=== PATIENT | male | born 1985 | race Two or more races ===

== ENCOUNTER 2024-10-15 19:14 | Emergency (ER) | payer MEDICAID, SELFPAY ==
[2024-10-15 19:15] VITALS: BMI 28.1
[2024-10-15 19:46] VITALS: BP 135/94; PULSE 85; RESP 17; TEMP 36.8; O2SAT 100
--- NOTE | 2024-10-15 19:48 | PD.EDRME ---
Rapid Medical Screening Exam RME Arrival date/time: 10/15/24 19:14 39 yo m present to ED for c/back/abd pain for 1 week I have greeted and performed a focused initial assessment of this patient. A comprehensive ED assessment and evaluation of the patient, analysis of all test results, and completion of the medical decision making process will be conducted by additional ED providers. Chief Complaint: Back Pain/Injury Time Seen by Provider: 10/15/24 19:32 Vital signs: Vital Signs Temperature 98.3 F 10/15/24 19:46 Pulse Rate 85 10/15/24 19:46 Respiratory Rate 17 10/15/24 19:46 Blood Pressure 135/94 H 10/15/24 19:46 Pulse Oximetry (%) 100 10/15/24 19:46 Oxygen Delivery Method Room Air 10/15/24 19:46
[2024-10-15 20:19] LABS: Collection Type, Urine Voided; WBC,Urine 0 /hpf (0-5)
[2024-10-15 20:20] LABS: Basophils % (Auto) 1 % (0-2.5); Eosinophils # (Auto) 0.1 Thou/mm3 (0.0-0.5); Eosinophils % (Auto) 1 % (0-10); Hematocrit 38.9 % (41.0-53.0); Hemoglobin 13.2 g/dL (13.5-16.0); Immature Granulocytes % (Auto) 0 % (0-0); Immature Granulocytes Auto 0.02 Thou/mm3 (0.00-0.00); Lymphocytes # (Auto) 2.2 Thou/mm3 (1.0-4.8); Lymphocytes % (Auto) 37 % (10-50); Mean Corpuscular HGB Conc 33.9 g/dl (31.0-37.0); Mean Corpuscular Hemoglobin 29.4 pg (25.0-35.0); Mean Corpuscular Volume 87 fL (80-100); Monocytes # (Auto) 0.5 Thou/mm3 (0.0-0.8); Monocytes % (Auto) 8 % (0-12); Neutrophils # (Auto) 3.2 Thou/mm3 (1.8-7.7); Neutrophils % (Auto) 54 % (37-80); Nucleated Red Blood Cell % 0 /100 WBC (0); Platelet Count 382 Thou/mm3 (140-440); RDW Standard Deviation 41.7 fL (35.1-43.9); Red Blood Count 4.49 Miln/mm3 (4.50-5.90); White Blood Count 6.1 Thou/mm3 (3.8-10.6)
[2024-10-15 20:39] LABS: Bilirubin,Urine Negative (Negative); Blood,Urine Negative (Negative); Clarity,Urine Clear (Clear/Hazy); Color,Urine Colorless (Lt Yel-Yel); Glucose, Urine Negative (Negative); Ketones,Urine Negative (Negative); Leukocyte Esterase,Urine Negative (Negative); Nitrite,Urine Negative (Negative); Protein,Urine Negative (Neg - Trace); RBC,Urine < 1 /hpf (0-3); Specific Gravity,Urine 1.004 (1.001-1.035); Squamous Epithelial Cell,Urine < 1 /hpf (0-5); Urobilinogen,Urine Negative mg/dL (0.0-1.0)
[2024-10-15 20:40] LABS: Alanine Aminotransferase 28 U/L (10-49); Albumin, Serum 4.1 gm/dL (3.5-5.0); Albumin/Globulin Ratio 1.2 (1.2-2.2); Alkaline Phosphatase 118 U/L (46-116); Anion Gap 7 (7-16); Aspartate Amino Transferase 22 U/L (0-34); BUN/Creatinine Ratio 8 Ratio (12-20); Bilirubin,Total 0.4 mg/dL (0.3-1.2); Blood Urea Nitrogen 7 mg/dL (9-23); Calcium 8.8 mg/dL (8.3-10.6); Calcium (Corrected) 8.8 mg/dL (8.5-10.1); Carbon Dioxide 29.2 mMol/L (20.0-31.0); Chloride 101 mMol/L (98-107); Creatinine (Component) 0.9 mg/dL (0.6-1.3); Estimated Creatinine Clearance 110.5 mL/min (>60); Globulin 3.5 gm/dL (2.3-3.5); Glucose 90 mg/dL (74-106); Lipase 44 U/L (12-53); Osmolality,Calculated 271 (275-295); Potassium 3.6 mMol/L (3.4-5.1); Sodium 137 mMol/L (136-145); Total Protein 7.6 gm/dL (5.7-8.2); eGFR > 60 See Note
[2024-10-15] MEDS: MG HYD/AL HYD/SIME (Maalox Reg) SUSP 30 ML UDC PO (20:40)
--- NOTE | 2024-10-15 21:15 | EDNOTE_ITS ---
ED Back Injury Pain RME/HPI General Chief Complaint: Back Pain/Injury Stated Complaint: LOWER BACK/ABD Time Seen by Provider: 10/15/24 19:32 Arrival date/time: 10/15/24 19:14 39 year old male present emergency room with c/o of back/abd pain for 1week. pt is homeless and report. REVIEW OF SYSTEMS: See History of Present Illness - with the exception of those mentioned in the history of present illness, all other systems reviewed and reported as negative GENERAL: In general the patient is awake, interactive, in an emergency department gurney. HEAD/EYES/EARS/NOSE/THROAT: normo-cephalic, atraumatic, mucus membranes are moist, anicteric, palpebral conjunctiva is pink, trachea is midline. CARDIOVASCULAR: regular rate and regular rhythm, no murmurs, heart sounds are not distant, strong pulses in all four extremities that are equal and symmetric bilateral upper and lower extremities, normal capillary refill. CHEST/PULMONARY: normal chest rise and fall, good air movement, clear to auscultation bilaterally, normal inspiratory to expiratory ratios without evidence of respiratory distress. NECK: No midline/Paraspinal tenderness, no step off ROM/Strenght intact No Kernig and bruzinski sign. No trauma ABDOMEN: soft, not tender, no masses appreciated BACK: low back parapsinal tenderness, no rash normal range of motion without pain. NEUROLOGICAL: cranio-facial features are symmetric, moves all four extremities equally without obvious limitations or weakness. EXTREMITY: no tenderness to palpation over the long bones or large joints of the bilateral upper and lower extremities, no joint swelling, no joint erythema, no signs of trauma, no unilateral leg swelling and no peripheral edema. SKIN: warm, dry, well-perfused, no jaundice, no rash, no telangiectasias or petechia. PSYCH: calm, cooperative, no evidence of psychosis or agitation RME / HPI RME / HPI Narrative: 10/15/24 19:14 39 yo m present to ED for c/back/abd pain for 1 week I have greeted and performed a focused initial assessment of this patient. A comprehensive ED assessment and evaluation of the patient, analysis of all test results, and completion of the medical decision making process will be conducted by additional ED providers. Related Data Previous Rx's ?Medication ?Instructions ?Recorded acetaminophen 325 mg tablet 325 mg PO QID PRN fever or pain 04/19/22 (Tylenol) #30 tabs clindamycin HCl 300 mg capsule 300 mg PO Q6H #40 tabs 04/19/22 ibuprofen 200 mg tablet (Ibuprofen 600 mg (3 x 200 mg) PO Q6H PRN 04/19/22 IB) pain #30 tabs Allergies Allergy/AdvReac Type Severity Reaction Status Date / Time No Known Allergies Allergy Verified 12/21/23 02:04 Course Quality Measures none Orders Category Date Time Status CBC Stat Lab 10/15/24 20:05 Completed CMP [Comprehensive Metabolic Panel] Stat Lab 10/15/24 20:05 Completed Lipase Stat Lab 10/15/24 20:05 Completed UA [Urinalysis] Stat Lab 10/15/24 20:10 Completed mg Hyd/Al Hyd/Mag Susp [Maalox Susp] Med 10/15/24 19:48 Discontinued 30 ml PO X1 ONE Vital Signs Vital signs: Vital Signs Temperature 98.3 F 10/15/24 19:46 Pulse Rate 85 10/15/24 19:46 Respiratory Rate 17 10/15/24 19:46 Blood Pressure 135/94 H 10/15/24 19:46 Pulse Oximetry (%) 100 10/15/24 19:46 Oxygen Delivery Method Room Air 10/15/24 19:46 Back Pain / Injury Patient data External records reviewed:: [facility] previous records Clinical information provided by:: patient Social determinants that could affect healthcare access:: none Patient has the following chronic illnesses:: n/a How is presenting disease/condition affected by chronic disease/condition?: uneffected by Evaluation data The following diagnostics were reviewed and interpreted by me:: lab results Lab and/or radiology exams considered but not ordered:: n/a Interpretation Summary: cbc/cmp wnl Medications / Prescriptions Medications or Prescriptions considered but not ordered:: n/a Medication administrations:: Medication Administration History Discontinued Medications Al Hydrox/Mg Hydrox/Simethicone (Mg Hyd/Al Hyd/Mag (Maalox Reg) Susp 30 Ml Udc) 30 ml PO X1 ONE Stop: 10/15/24 19:49 Last Admin: 10/15/24 20:40 Dose: 30 ml Documented By: ALISHA as stated Consultations Consultation(s) initiated? (list below): No Diagnosis Most likely diagnosis given after review of the tests above:: back pain Admission Indicated Admission indicated?: not indicated Admission Request Was there a request for admission?: No Disposition Plan Disposition Plan: Discharge Discharge Attestation Discharge Attestation: The patient and all family members were given an opportunity to ask questions and understood the discharge instructions. Discharge instructions specifically effects, indications for sooner follow up or return to the emergency department, and the expected course of current diagnosis. Patient condition: Stable Discharge Plan Plan Patient Disposition: HOME (Self Care) Health Concerns: Follow with PMD as directed Take tylenol or motrin as need Return to ED if sx worsen Prescriptions/Referrals Prescriptions/Med Rec: No Action clindamycin HCl 300 mg capsule 300 mg PO Q6H Qty: 40 0RF ibuprofen [Ibuprofen IB] 200 mg tablet 600 mg PO Q6H PRN (Reason: pain) Qty: 30 0RF acetaminophen [Tylenol] 325 mg tablet 325 mg PO QID PRN (Reason: fever or pain) Qty: 30 0RF Referrals: No Primary/Family,Physician [Primary Care Provider] - In 1 week Problem List Clinical Impression: Back pain Patient/Caregiver Discharge Instructions Education Materials: ED Back Care Tips Print Language: Kinyarwanda Stand Alone Forms: Rema Award Info., Patient Portal Info Letter
== END 2024-10-15 21:37 | disposition home or self-care (01) ==
PROVIDERS: Physician Assistant; Emergency Provider Emergency Medicine
DX: M54.9 Dorsalgia, unspecified (principal); Z59.00 Homelessness unspecified
CPT/HCPCS: 36415; 80053; 81001; 83690; 85025; 99283; A9270

== ENCOUNTER 2025-02-24 05:05 | Emergency (ER) | payer MEDICAID, SELFPAY ==
[2025-02-24 05:07] VITALS: BMI 29.0
[2025-02-24 05:30] VITALS: BP 130/92; PULSE 81; RESP 18; TEMP 36.7; O2SAT 100
--- NOTE | 2025-02-24 06:23 | XR_ITS ---
Examination: Testicular sonography complete TECHNIQUE: Grayscale sonographic images testes, assessment arterial inflow venous outflow Doppler spectral analysis carful analysis Date and time: February 24, 2025 0737 hours INDICATIONS: Left testicular pain and swelling today FINDINGS: Right testis 5.2 cm epididymis 12 mm. Arterial flow testicle. No testicular mass Left testis 5.0 cm epididymis 15 mm No arterial flow, which may be technical given the swelling in the scrotum No testicular mass Scrotal wall is thickened IMPRESSION: No arterial flow recorded to the left testicle, repeat this study short-term
--- NOTE | 2025-02-24 06:23 | XR_ITS ---
Examination: CT abdomen and pelvis without contrast. Coronal 3-D reconstructions. Sagittal 2-D reconstructions. Date and time of exam:February 24, 2025, 0705 hours Comparison August 26, 2021 INDICATIONS: Left lower abdominal pain abdominal pain with clinical diagnosis urinary tract infection today CTDI: vol (mGy): 7.46. DLP: (mGycm): 394. Technique: Axial images of the abdomen have been obtained, 3 mm slice thickness Intravenous contrast material has not been administered. Low dose protocols were performed. One or more of the following dose reduction techniques were used; automated exposure control, adjustment of the mA and/or KV according to patient size, use of iterative reconstruction technique. Findings: No focal liver or splenic lesions. No gallstones No pancreatic or adrenal mass No renal or ureteral calculi, no hydronephrosis 12 mm fat-containing umbilical hernia Normal appendix No bowel obstruction Marked urinary bladder wall thickening up to 15 mm No bladder calculi No prostatomegaly Fluid-containing left inguinal hernia There is edema in the lower abdominal and pelvic mesentery, for instance axial image 136, clinical correlation advised No bowel obstruction Impression : Severe cystitis pattern. There is edema in the lower abdominal and pelvic mesentery, differential would include mesenteric panniculitis, clinical correlation advised
--- NOTE | 2025-02-24 06:24 | PD.EDRME ---
Rapid Medical Screening Exam E Arrival date/time: 02/24/25 05:05 39-year-old male with a history of an inguinal hernia presents to the emergency room with a chief complaint of lower abdominal pain, dysuria, left-sided testicular swelling x 1 week I have greeted and performed a focused initial assessment of this patient. A comprehensive ED assessment and evaluation of the patient, analysis of all test results, and completion of the medical decision making process will be conducted by additional ED providers. Chief Complaint: Abdominal Pain Time Seen by Provider: 02/24/25 06:13 Vital signs: Vital Signs Temperature 98.1 F 02/24/25 05:30 Pulse Rate 81 02/24/25 05:30 Respiratory Rate 18 02/24/25 05:30 Blood Pressure 130/92 H 02/24/25 05:30 Pulse Oximetry (%) 100 02/24/25 05:30 Vital signs reviewed by provider: Yes
[2025-02-24 06:45] LABS: Basophils # (Auto) 0.1 Thou/mm3 (0.0-0.2); Basophils % (Auto) 1 % (0-2.5); Eosinophils # (Auto) 0.1 Thou/mm3 (0.0-0.5); Eosinophils % (Auto) 1 % (0-10); Hematocrit 42.5 % (41.0-53.0); Hemoglobin 14.5 g/dL (13.5-16.0); Immature Granulocytes Auto 0.01 Thou/mm3 (0.00-0.00); Lymphocytes # (Auto) 2.1 Thou/mm3 (1.0-4.8); Lymphocytes % (Auto) 34 % (10-50); Mean Corpuscular HGB Conc 34.1 g/dl (31.0-37.0); Mean Corpuscular Hemoglobin 30.8 pg (25.0-35.0); Mean Corpuscular Volume 90 fL (80-100); Monocytes # (Auto) 0.5 Thou/mm3 (0.0-0.8); Monocytes % (Auto) 7 % (0-12); Neutrophils # (Auto) 3.5 Thou/mm3 (1.8-7.7); Neutrophils % (Auto) 56 % (37-80); Nucleated Red Blood Cell # 0.00 Thou/mm3 (0.00-0.00); Nucleated Red Blood Cell % 0 /100 WBC (0); Platelet Count 290 Thou/mm3 (140-440); RDW Standard Deviation 46.4 fL (35.1-43.9); Red Blood Count 4.71 Miln/mm3 (4.50-5.90); White Blood Count 6.3 Thou/mm3 (3.8-10.6)
[2025-02-24 07:03] LABS: Alanine Aminotransferase 10 U/L (10-49); Albumin, Serum 4.5 gm/dL (3.5-5.0); Albumin/Globulin Ratio 1.6 (1.2-2.2); Alkaline Phosphatase 118 U/L (46-116); Anion Gap 7 (7-16); Aspartate Amino Transferase 17 U/L (0-34); BUN/Creatinine Ratio 7 Ratio (12-20); Bilirubin,Total 0.6 mg/dL (0.3-1.2); Blood Urea Nitrogen 6 mg/dL (9-23); Calcium 9.2 mg/dL (8.3-10.6); Calcium (Corrected) 9.2 mg/dL (8.5-10.1); Carbon Dioxide 29.7 mMol/L (20.0-31.0); Chloride 101 mMol/L (98-107); Creatinine (Component) 0.9 mg/dL (0.6-1.3); Estimated Creatinine Clearance 108.4 mL/min (>60); Globulin 2.8 gm/dL (2.3-3.5); Glucose 95 mg/dL (74-106); Lipase 40 U/L (12-53); Osmolality,Calculated 273 (275-295); Potassium 3.8 mMol/L (3.4-5.1); Sodium 138 mMol/L (136-145); Total Protein 7.3 gm/dL (5.7-8.2); eGFR > 60 See Note
[2025-02-24 07:26] VITALS: BP 145/91; PULSE 92; RESP 19; TEMP 36.6; O2SAT 100
[2025-02-24 08:50] LABS: Collection Type, Urine Clean Catch; RBC,Urine 0 /hpf (0-3); Squamous Epithelial Cell,Urine 0 /hpf (0-5)
[2025-02-24 09:03] VITALS: BP 132/88; PULSE 80; RESP 15; O2SAT 100
[2025-02-24 09:09] LABS: Bilirubin,Urine Negative (Negative); Blood,Urine Negative (Negative); Clarity,Urine Clear (Clear/Hazy); Color,Urine Colorless (Lt Yel-Yel); Culture Indicated,Urine Not Indicated; Glucose, Urine Negative (Negative); Ketones,Urine Negative (Negative); Leukocyte Esterase,Urine Negative (Negative); Nitrite,Urine Negative (Negative); PH,Urine 6.5 (5.0-7.0); Protein,Urine Negative (Neg - Trace); Specific Gravity,Urine 1.003 (1.001-1.035); Urobilinogen,Urine Negative mg/dL (0.0-1.0); WBC,Urine < 1 /hpf (0-5)
--- NOTE | 2025-02-24 09:43 | PD.EDMALE ---
ED Male Genitalurinary RME/HPI General Chief complaint: Abdominal Pain Stated complaint: ABD PAIN Time Seen by Provider: 02/24/25 06:13 Arrival date/time: 02/24/25 05:05 RME / HPI RME / HPI Narrative: 02/24/25 05:05 39-year-old male with a history of an inguinal hernia presents to the emergency room with a chief complaint of lower abdominal pain, dysuria, left-sided testicular swelling x 1 week I have greeted and performed a focused initial assessment of this patient. A comprehensive ED assessment and evaluation of the patient, analysis of all test results, and completion of the medical decision making process will be conducted by additional ED providers. DR. LOBATO MAIN ED EVALUATION: 39-year-old male with a history of polysubstance abuse (fentanyl, methamphetamie, THC) presents to the Emergency Department with complaint of bilateral testicular swelling, worse on the left, associated with moderate pain and trouble urinating. Symptoms started yesterday. Patient denies discharge or other symptoms at this time. Related Data Previous Rx's ?Medication ?Instructions ?Recorded acetaminophen 325 mg tablet 325 mg PO QID PRN fever or pain 04/19/22 (Tylenol) #30 tabs clindamycin HCl 300 mg capsule 300 mg PO Q6H #40 tabs 04/19/22 ibuprofen 200 mg tablet (Ibuprofen 600 mg (3 x 200 mg) PO Q6H PRN 04/19/22 IB) pain #30 tabs Allergies Allergy/AdvReac Type Severity Reaction Status Date / Time No Known Allergies Allergy Verified 12/21/23 02:04 Review of Systems Review of Systems Systems Reviewed: All systems reviewed, normal except as documented Past Medical History Past Medical History NEUROLOGIC: Positive Head Trauma ENT: Positive Head Trauma PSYCHO/SOCIAL: Positive Recreational Drug Use Social History SMOKING STATUS: Never smoker SUBSTANCE USE: methamphetamine ED Exam Narrative Physical exam: GENERAL APPEARANCE: alert and oriented x 4, well-developed, well-nourished, no acute distress VITALS: All vitals were reviewed and the pulse ox is 100% on room air, which is normal according to my interpretation. HEENT: Normocephalic, atraumatic; pupils equal, round, reactive to light; EOMI; mucous membranes pink, moist; oropharynx clear NECK: Supple LUNGS: CTABL; no wheezes, no rales, no rhonchi HEART: Regular rate, regular rhythm; normal S1, S2; no murmurs ABDOMEN: non distended; normal BS; soft, no tenderness, no guarding, no rebound; no masses, no organomegaly, no hernia : Bilateral testicles' swelling but moreso on the left testicle. BACK: no CVA tenderness EXTREMITIES: atraumatic; no edema NEUROLOGIC: awake; alert and oriented x4; cranial nerves II-XII grossly intact; no focal sensory or motor deficits PSYCHIATRIC: appropriate mood and affect SKIN: warm, dry, normal color; no rashes Course Quality Measures none Orders Category Date Time Status CT abdomen pelvis wo con Stat Exams 02/24/25 06:23 Completed US scrotum Stat Exams 02/24/25 11:35 Completed US testicular Stat Exams 02/24/25 06:23 Completed CBC Stat Lab 02/24/25 06:31 Completed CMP [Comprehensive Metabolic Panel] Stat Lab 02/24/25 06:31 Completed Lipase Stat Lab 02/24/25 06:31 Completed UA, C/S IF [Urinalysis, C/S if Indicated] Stat Lab 02/24/25 07:37 Completed Vital Signs Vital signs: Vital Signs Temperature 98.1 F 02/24/25 05:30 Pulse Rate 81 02/24/25 05:30 Respiratory Rate 18 02/24/25 05:30 Blood Pressure 130/92 H 02/24/25 05:30 Pulse Oximetry (%) 100 02/24/25 05:30 Urogenital - Male MDM Narrative MDM Narrative:: I, Katherine Bowles am scribing for and in the presence of Dr. Lobato. Patient data External records reviewed:: [facility] previous records Clinical information provided by:: patient Social determinants that could affect healthcare access:: substance use (polysubstance abuse (fentanyl, methamphetamie, THC)) Patient has the following chronic illnesses:: Denies any PMHx, surgeries, daily medications, or known allergies. How is presenting disease/condition affected by chronic disease/condition?: no chronic disease Evaluation data The following diagnostics were reviewed and interpreted by me:: lab results and radiology exam(s) Lab and/or radiology exams considered but not ordered:: none Interpretation Summary: Procedure(s): US testicular Accession Number(s): [id number] cc: Herman Morales; Jose Rodriguez MD; NO PRIMARY/FAMILY,PHYSICIAN~ Examination: Testicular sonography complete TECHNIQUE: Grayscale sonographic images testes, assessment arterial inflow venous outflow Doppler spectral analysis carful analysis Date and time: February 24, 2025 0737 hours INDICATIONS: Left testicular pain and swelling today FINDINGS: Right testis 5.2 cm epididymis 12 mm. Arterial flow testicle. No testicular mass Left testis 5.0 cm epididymis 15 mm No arterial flow, which may be technical given the swelling in the scrotum No testicular mass Scrotal wall is thickened IMPRESSION: No arterial flow recorded to the left testicle, repeat this study short-term Dictated By: Jose Rodriguez MD Procedure(s): CT abdomen pelvis wo [facility] Accession Number(s): [id number] cc: Herman Morales; Jose Rodriguez MD~ Examination: CT abdomen and pelvis without contrast. Coronal 3-D reconstructions. Sagittal 2-D reconstructions. Date and time of exam:February 24, 2025, 0705 hours Comparison August 26, 2021 INDICATIONS: Left lower abdominal pain abdominal pain with clinical diagnosis urinary tract infection today CTDI: vol (mGy): 7.46. DLP: (mGycm): 394. Technique: Axial images of the abdomen have been obtained, 3 mm slice thickness Intravenous contrast material has not been administered. Low dose protocols were performed. One or more of the following dose reduction techniques were used; automated exposure control, adjustment of the mA and/or KV according to patient size, use of iterative reconstruction technique. Findings: No focal liver or splenic lesions. No gallstones No pancreatic or adrenal mass No renal or ureteral calculi, no hydronephrosis 12 mm fat-containing umbilical hernia Normal appendix No bowel obstruction Marked urinary bladder wall thickening up to 15 mm No bladder calculi No prostatomegaly Fluid-containing left inguinal hernia There is edema in the lower abdominal and pelvic mesentery, for instance axial image 136, clinical correlation advised No bowel obstruction Impression : Severe cystitis pattern. There is edema in the lower abdominal and pelvic mesentery, differential would include mesenteric panniculitis, clinical correlation advised Dictated By: Jose Rodriguez MD Procedure(s): US scrotum Accession Number(s): [id number] cc: Jose Rodriguez MD; NO PRIMARY/FAMILY,PHYSICIAN; Ángela Lobato MD~ Examination: Testicular sonography complete TECHNIQUE: Grayscale sonographic images testes, assessment arterial inflow venous outflow Doppler spectral analysis carful analysis Date and time: February 24, 2025, 1157 hours INDICATIONS: No left testicular flow on ultrasound left testis 0737 hours this morning FINDINGS: Right testis 4.7 cm epididymis 9 mm Arterial flow testicle. No testicular mass Left testis 4.6 cm epididymis 11 mm Arterial flow testicle No testicular mass IMPRESSION: Negative for testicular torsion Dictated By: Jose Rodriguez MD Medications / Prescriptions Medications or Prescriptions considered but not ordered:: none Medication administrations:: see above if any Consultations Consultation(s) initiated? (list below): Yes Consultation #1 (Physician, Specialty, Details): Discussed testicular US with Dr. Sabillon. He sees good arterial flow on the right testicle, but no arterial flow recorded to the left testicle. There is concern for torsion. Dr. Sabillon report there is a lot of edema on the left testicle so recommended to repeat the US in an hour. Time: 09:29 Diagnosis Urogenital Male Differential Diagnosis: other (epididymitis, testicular torsion, and orchitis) Most likely diagnosis given after review of the tests above:: Scrotal edema Admission Indicated Admission indicated?: not indicated Admission Request Was there a request for admission?: No Disposition Plan Disposition Plan: Discharge Discharge Attestation Discharge Attestation: The patient and all family members were given an opportunity to ask questions and understood the discharge instructions. Discharge instructions specifically effects, indications for sooner follow up or return to the emergency department, and the expected course of current diagnosis. Patient condition: Stable Discharge Plan Plan Patient Disposition: HOME (Self Care) Prescriptions/Referrals Prescriptions/Med Rec: No Action clindamycin HCl 300 mg capsule 300 mg PO Q6H Qty: 40 0RF ibuprofen [Ibuprofen IB] 200 mg tablet 600 mg PO Q6H PRN (Reason: pain) Qty: 30 0RF acetaminophen [Tylenol] 325 mg tablet 325 mg PO QID PRN (Reason: fever or pain) Qty: 30 0RF Referrals: No Primary/Family,Physician [Primary Care Provider] - In 1 week Problem List Clinical Impression: Scrotal edema Patient/Caregiver Discharge Instructions Education Materials: ED Leg Swelling in a Single Leg Print Language: Mongolian Stand Alone Forms: Rema Award Info., Patient Portal Info Letter
--- NOTE | 2025-02-24 11:35 | XR_ITS ---
Examination: Testicular sonography complete TECHNIQUE: Grayscale sonographic images testes, assessment arterial inflow venous outflow Doppler spectral analysis carful analysis Date and time: February 24, 2025, 1157 hours INDICATIONS: No left testicular flow on ultrasound left testis 0737 hours this morning FINDINGS: Right testis 4.7 cm epididymis 9 mm Arterial flow testicle. No testicular mass Left testis 4.6 cm epididymis 11 mm Arterial flow testicle No testicular mass IMPRESSION: Negative for testicular torsion
[2025-02-24 12:43] VITALS: BP 124/89; PULSE 70; RESP 18; TEMP 36.4; O2SAT 100
[2025-02-24 13:31] VITALS: BP 138/97; PULSE 72; RESP 16; TEMP 36.4; O2SAT 100
== END 2025-02-24 13:32 | disposition home or self-care (01) ==
PROVIDERS: Nurse Practitioner Family; Emergency Provider Emergency Medicine
DX: N50.89 Other specified disorders of the male genital organs (principal); R60.1 Generalized edema; R10.32 Left lower quadrant pain
CPT/HCPCS: 36415; 74176; 76870; 80053; 81001; 83690; 85025; 99283

== ENCOUNTER 2025-04-03 17:32 | Emergency (ER) | payer MEDICAID, SELFPAY ==
[2025-04-03 17:34] VITALS: BMI 29.0
[2025-04-03 18:11] VITALS: BP 134/91; PULSE 85; RESP 17; TEMP 37; O2SAT 100
--- NOTE | 2025-04-03 18:28 | PD.EDMALE ---
ED Male Genitalurinary RME/HPI General Chief complaint: Urogenital-Male Stated complaint: RED SPOT ON PRIVATES, INGROWN NAIL LEFT TOE Time Seen by Provider: 04/03/25 18:19 Arrival date/time: 04/03/25 17:32 RME / HPI RME / HPI Narrative: 39-year-old male patient, homeless, came in for evaluation regarding multiple blister in the glans penis and shaft of the penis, has been going for the last few days, severity mild. Patient also complained of ingrown toenail to the right great toe for 1 week. Denies any fever denies any other complaints. Patient admits of having unprotected sex lately. Related Data Previous Rx's ?Medication ?Instructions ?Recorded acetaminophen 325 mg tablet 325 mg PO QID PRN fever or pain 04/19/22 (Tylenol) #30 tabs clindamycin HCl 300 mg capsule 300 mg PO Q6H #40 tabs 04/19/22 ibuprofen 200 mg tablet (Ibuprofen 600 mg (3 x 200 mg) PO Q6H PRN 04/19/22 IB) pain #30 tabs doxycycline hyclate 100 mg capsule 100 mg PO BID #20 caps 04/03/25 valacyclovir 1 gram tablet 1,000 mg PO TID #30 tabs 04/03/25 (Valtrex) Allergies Allergy/AdvReac Type Severity Reaction Status Date / Time No Known Allergies Allergy Verified 04/03/25 17:35 Review of Systems Review of Systems Narrative Review of Systems: Review of system reviewed and within normal limits except mentioned in HPI ED Exam Narrative Physical exam: VITAL SIGNS: Reviewed. GENERAL APPEARANCE: Alert and interactive, follows commands, no acute distress, HEAD AND FACE: Non-traumatic. ENT: PERRL, pink conjunctivitis, eyelid no trauma, Mucous membrane moist. NECK: Supple, nontender, no nuchal rigidity. CHEST: No tenderness, no crepitus, no paradoxical movement, no retractions. LUNGS: Clear, well ventilated, symmetric, no rales, no wheezing, no ronchi, no stridor, good breath sounds bilaterally. HEART: Regular rate, regular rhythm, no murmur, no gallops. ABDOMEN: Soft, positive bowel sounds, nondistended, no guarding, nontender, no rebound, no masses, RECTAL: Deferred. GENITAL: 2 blister noted on the glans penis and shaft of the penis, no bleeding noted NEUROLOGICAL: Gross motor function intact sensory function intact, Appropriate for age. MUSCULOSKELETAL: low back nontender, full range of motion. EXTREMITIES: Right ingrowing to the nail with redness no pus noted, full range of motion. SKIN: Color pink, dry, no rash, no lacerations, no abrasions, no contusions. LYMPHATICS: Deferred. Course Quality Measures none Orders Category Date Time Status Doxycycline [Vibramycin] Med 04/03/25 18:27 Once 100 mg PO X1 ONE Valtrex Med 04/03/25 18:28 Once 1 g PO X1 ONE Vital Signs Vital signs: Vital Signs Temperature 98.6 F 04/03/25 18:11 Pulse Rate 85 04/03/25 18:11 Respiratory Rate 17 04/03/25 18:11 Blood Pressure 134/91 H 04/03/25 18:11 Pulse Oximetry (%) 100 04/03/25 18:11 Oxygen Delivery Method Room Air 04/03/25 18:11 Urogenital - Male MDM Narrative MDM Narrative:: 39-year-old male patient, homeless, came in for evaluation regarding multiple blister in the glans penis and shaft of the penis, has been going for the last few days, severity mild. Patient also complained of ingrown toenail to the right great toe for 1 week. Denies any fever denies any other complaints. Patient admits of having unprotected sex lately. Clinically patient is having genital herpes. Patient also had infected ingrowing toenail. Patient was given Valtrex and doxycycline in the emergency room. Patient data External records reviewed:: None Clinical information provided by:: patient Social determinants that could affect healthcare access:: housing (None) Patient has the following chronic illnesses:: None How is presenting disease/condition affected by chronic disease/condition?: no chronic disease Evaluation data The following diagnostics were reviewed and interpreted by me:: other (specify) (None) Lab and/or radiology exams considered but not ordered:: None Interpretation Summary: None Medications / Prescriptions Medications or Prescriptions considered but not ordered:: None Medication administrations:: Valtrex and doxycycline Consultations Consultation(s) initiated? (list below): No Diagnosis Urogenital Male Differential Diagnosis: other (Infected ingrowing toenail, genital herpes, genital blister) Most likely diagnosis given after review of the tests above:: Infected ingrowing toenail, genital herpes Admission Indicated Admission indicated?: not indicated Explain why admission is indicated or not indicated:: Stable Admission Request Was there a request for admission?: No Disposition Plan Disposition Plan: Discharge Discharge Attestation Discharge Attestation: The patient was given an opportunity to ask questions and understood the discharge instructions. Discharge instructions specifically effects, indications for sooner follow up or return to the emergency department, and the expected course of current diagnosis. Patient condition: Stable Discharge Plan Plan Patient Disposition: HOME (Self Care) Discharge Disposition comment: Stable Prescriptions/Referrals Prescriptions/Med Rec: New doxycycline hyclate 100 mg capsule 100 mg PO BID Qty: 20 0RF valacyclovir [Valtrex] 1 gram tablet 1,000 mg PO TID Qty: 30 0RF No Action clindamycin HCl 300 mg capsule 300 mg PO Q6H Qty: 40 0RF ibuprofen [Ibuprofen IB] 200 mg tablet 600 mg PO Q6H PRN (Reason: pain) Qty: 30 0RF acetaminophen [Tylenol] 325 mg tablet 325 mg PO QID PRN (Reason: fever or pain) Qty: 30 0RF Problem List Clinical Impression: Ingrowing toenail with infection, Genital herpes Patient/Caregiver Discharge Instructions Discharge Activity: activity as tolerated Education Materials: Herpes Additional Instructions: Thank you for the opportunity for serving you today. You are stable for discharged . You are advised to: Follow-up with your PCP in 1 to 2 days Return to ED for worsening of symptoms Increase oral fluids Take medication as prescribed Please practice safe sex all the time As your PCP to refer you to a pulper Print Language: Portuguese Stand Alone Forms: Rema Award Info., Patient Portal Info Letter
[2025-04-03] MEDS: DOXYCYCLINE 100 MG TABLET PO (18:50)
[2025-04-03] MEDS: valACYclovir 500 MG TABLET (NON-FORMULARY) 1000 MG PO (18:50)
== END 2025-04-03 19:00 | disposition home or self-care (01) ==
PROVIDERS: Emergency Provider Emergency Medicine
DX: L60.0 Ingrowing nail (principal); A60.02 Herpesviral infection of other male genital organs
CPT/HCPCS: 99283; A9270

== ENCOUNTER 2025-04-15 03:39 | Emergency (ER) | payer MEDICAID, SELFPAY ==
[2025-04-15 03:40] VITALS: BMI 29.0
[2025-04-15 04:00] VITALS: BP 145/93; PULSE 83; RESP 18; TEMP 37; O2SAT 100
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
--- NOTE | 2025-04-15 07:18 | PC.NURSE ---
[place], juice, apple sauce given, giovana crackers with peanut butter given. Pt. states thank you.
[2025-04-15 07:20] VITALS: BP 138/99; PULSE 65; RESP 17; TEMP 36.3; O2SAT 99
[2025-04-15 08:04] LABS: MHATP/TP-PA* See Sep Rpt; Syphilis Reactive (Nonreactive)
== END 2025-04-15 07:20 | disposition home or self-care (01) ==
PROVIDERS: Physician Assistant; Emergency Provider Emergency Medicine; PCP Family Medicine
DX: Z76.0 Encounter for issue of repeat prescription (principal); L60.0 Ingrowing nail; R21 Rash and other nonspecific skin eruption
CPT/HCPCS: 36415; 81001; 86780; 99283